=== PATIENT | female | born 1975 | race Caucasian/White ===

== ENCOUNTER 2017-04-02 09:24 | Observation (INO) ==
[2017-04-02] MEDS ORDERED: *HR* Promethazine 25 MG/ML VIAL IVP ONE (09:29)
--- NOTE | 2017-04-02 09:32 | Emergency Department Note ---
Disposition Clinical Impression: Pancreatitis Disposition: Admitted As Inpatient Condition: Good Referrals: Arthur Colon Jr, GYM INSTRUCTOR [Primary Care Provider] - Forms: ED Satisfaction Letter, Work/School Release Time of Disposition: 12:24 Abdominal Pain HPI - General Chief Complaint: ED Abdominal Pain Stated Complaint: Abd Pain Time Seen by Provider: 04/02/17 09:26 Source: patient Limitations: no limitations Nursing Notes Reviewed: Yes Vital Signs Reviewed: Yes - History of Present Illness HPI Narrative: 42-year-old F presents to ER with upper abdominal pain that radiates around to her back. Patient was seen here in the ER last evening for the same complaint. Patient had negative workup. She was given meclizine for her dizziness at that time as well as Zofran. She states that she does not feel any better. She returns for reevaluation. She still having this upper abdominal pain that radiates around to her back. Nothing seems to improve or worsen her symptoms. She denies any significant cough. No chest pain. She has had a recent URI which she was on Zithromax for her. She denies any diarrhea. States her bowels have been moving fine. The lower abdominal pain. She has a previous cholecystectomy. No cardiac history. Her workup last night they did check a troponin and EKG that was unremarkable. - Related Data Home Medications Medication Instructions Recorded Confirmed Acetaminophen [Tylenol] 500 mg PO Q6HR PRN 05/17/15 05/17/15 Albuterol Sulfate [Proair 2 puff IH Q4H PRN 05/17/15 05/17/15 Respiclick] Beclomethasone Diprop 80mcg [Qvar 1 puff IH BID 05/17/15 05/17/15 80 mcg] Dicyclomine [Bentyl] 20 mg PO QID PRN 05/17/15 05/17/15 FLUoxetine HCl [PROzac] 20 mg PO DAILY 05/17/15 05/17/15 Hyoscyamine SL [Levsin SL] 0.125 mg SL DAILY PRN 05/17/15 05/17/15 Lisinopril-HCTZ 10-12.5 [Prinzide 1 each PO DAILY 05/17/15 05/17/15 10-12.5] Loratadine [Claritin] 10 mg PO DAILY 05/17/15 05/17/15 Metoprolol [Lopressor] 12.5 mg PO BID 05/17/15 05/17/15 Omeprazole [PriLOSEC] 40 mg PO QAM 05/17/15 05/17/15 Simvastatin [Zocor] 20 mg PO HS 05/17/15 05/17/15 Previous Rx's Medication Instructions Recorded Dicyclomine [Bentyl] 10 mg PO QID PRN #15 capsule 12/24/15 Oseltamivir [Tamiflu] 75 mg PO BID #10 capsule 07/06/16 Promethazine [Phenergan] 25 mg PO Q8HR PRN #10 tablet 07/06/16 predniSONE [PredniSONE] 20 mg PO DAILY #20 tablet 03/28/17 Ondansetron HCl [Zofran] 4 mg PO Q8H PRN #7 tablet 04/01/17 Allergies Allergy/AdvReac Type Severity Reaction Status Date / Time No Known Allergies Allergy Verified 03/28/17 16:20 Constitutional: Reports: as per HPI. Denies: fever, chills Eyes: Reports: as per HPI Cardiovascular: Reports: as per HPI. Denies: chest pain, palpitations Respiratory: Reports: as per HPI Gastrointestinal: Reports: abdominal pain, nausea. Denies: vomiting Musculoskeletal: Reports: back pain Integumentary: Reports: as per HPI Neurological: Reports: as per HPI Psychiatric: Reports: as per HPI Endocrine: Reports: as per HPI Hematological/Lymphatic: Reports: as per HPI Allergic/Immunologic: Reports: as per HPI Abdominal Pain PMH - Past Medical History Medical history: Reports: arthritis, asthma, other Female Surgical History: Reports: , cholecystectomy [employer] TECHNICIAN history: Reports: non-contributory, bilateral tubal ligation Psychiatric history: Reports: depression - Social History Smoking status: Never smoker Alcohol use: Reports: none Drug use: Reports: none Physical Exam - General Limitations: no limitations - Head Head exam: atraumatic, normocephalic - ENT ENT exam: normal exam - Neck Neck exam: Present: normal inspection - Chest Chest inspection: Present: normal inspection, symmetric chest wall rise - Respiratory Respiratory exam: Present: normal lung sounds bilaterally - Cardiovascular Cardiovascular exam: Present: regular rate, normal rhythm - Abdominal Exam Abdominal exam: Present: soft, tenderness (Patient has tenderness in the epigastric region and along the bilateral lower ribs anteriorly. No guarding or rebound. Normal bowel sounds.) - Extremities Exam Extremities exam: Present: normal inspection - Expanded Lower Extremity Exam Hip/Pelvis exam: Present: normal inspection - Back Exam Back exam: Present: normal inspection - Neurological Exam Neurological exam: Present: alert, oriented X3 - Psychiatric Psychiatric exam: Present: normal affect, normal mood - Skin Skin exam: Present: warm, dry, intact Course Vital Signs Temperature 97.5 F L 04/02/17 09:27 Pulse Rate 55 04/02/17 09:27 Respiratory Rate 16 04/02/17 09:27 Blood Pressure 139/86 04/02/17 09:27 O2 Sat by Pulse Oximetry 98 04/02/17 09:27 Temperature 97.5 F L 04/02/17 09:27 Pulse Rate 55 04/02/17 09:27 Respiratory Rate 16 04/02/17 09:27 Blood Pressure 139/86 04/02/17 09:27 O2 Sat by Pulse Oximetry 98 04/02/17 09:27 Oxygen Delivery Oxygen Delivery Room Air Abdominal Pain - MDM Narrative Medical decision making narrative: Patient was found to have an elevated lipase level today. Yesterday was negative. did a CT scan today which shows evidence of interstitial pancreatitis. Patient will need to be admitted GI rest. Fluids anti-emetics. Discussed the case with the hospitalist. - Medical Records Medical records reviewed: Yes I reviewed the patient's medical records. - Lab Data Lab results reviewed: Yes I reviewed the patient's lab results. Result diagrams: 04/02/17 09:41 04/02/17 09:41 Lab Results 04/02/17 04/02/17 04/02/17 Range/Units 09:41 09:41 09:41 WBC 10.3 (4.3-11.1) K/mcL RBC 4.43 (3.82-4.97) M/mcL Hgb 12.9 (11.5-15.4) g/dL Hct 39.0 (35.3-44.9) % MCV 88.0 (83.0-100.0) fL MCH 29.1 (28.0-33.3) pg MCHC 33.1 (31.6-35.5) g/dL RDW 12.7 (11.5-14.5) % Plt Count 237 (140-400) K/mcL MPV 11.3 (9.4-12.4) fL Immature Gran % 0.9 (0-4) % Seg Neutrophils % 55.6 % Lymphocytes % 33.0 % Monocytes % 8.7 % Eosinophils % 1.4 % Basophils % 0.4 % Neutrophils # 5.7 (1.6-8.9) K/mcL Lymphocytes # 3.4 (0.6-4.6) K/mcL Monocytes # 0.9 (0.0-1.3) K/mcL Eosinophils # 0.1 (0.0-0.6) K/mcL Basophils # 0.0 (0.0-0.2) K/mcL D-Dimer < 215 (0-500) ng/mLFEU Sodium 140 (136-145) mEq/L Potassium 3.4 L (3.5-5.1) mEq/L Chloride 107 (98-107) mEq/L Carbon Dioxide 26 (23-29) mEq/L BUN 16 (6-20) mg/dL Creatinine 0.68 (0.60-1.20) mg/dL Est GFR ( Amer) > 60 (> 60) Est GFR (Non-Af Amer) > 60 (> 60) BUN/Creatinine Ratio 24 (6-26) Glucose 91 (70-105) mg/dL Calculated Osmolality 291 (280-300) Calcium 8.7 (8.6-10.3) mg/dL Total Bilirubin 0.4 (0.3-1.0) mg/dL Direct Bilirubin 0.1 (0.0-0.2) mg/dL Indirect Bilirubin 0.3 (0.0-1.2) mg/dL AST 28 (13-39) Units/L ALT 23 (7-52) Units/L Alkaline Phosphatase 85 (34-104) Units/L Troponin I (< 0.04) ng/mL Serum Total Protein 5.9 L (6.4-8.9) g/dL Albumin 3.8 (3.5-5.7) g/dL Globulin 2.1 L (2.4-3.5) g/dL Albumin/Globulin Ratio 1.8 (1.1-2.2) Lipase 203 H (11-82) Units/L Urine Color (Yellow) Urine Clarity (Clear) Urine pH (5.0-8.0) pH Units Ur Specific [place] (1.010-1.025) Urine Protein (Neg-Trace) mg/dL Urine Glucose (UA) (Normal) mg/dL Urine Ketones (Negative) mg/dL Urine Blood (Negative) Urine Nitrite (Negative) Urine Bilirubin (Negative) Urine Urobilinogen (Normal) mg/dL Ur Leukocyte Esterase (Negative) Urine Microscopic RBC (0-3) per hpf Urine Microscopic WBC (0-3) per hpf Ur Squamous Epith Cells (None-Few) per lpf Urine Bacteria (None-Few) per hpf Hyaline Casts (None-Few) per lpf Ur Culture Indicated? (NO) 04/02/17 04/02/17 Range/Units 09:41 10:07 WBC (4.3-11.1) K/mcL RBC (3.82-4.97) M/mcL Hgb (11.5-15.4) g/dL Hct (35.3-44.9) % MCV (83.0-100.0) fL MCH (28.0-33.3) pg MCHC (31.6-35.5) g/dL RDW (11.5-14.5) % Plt Count (140-400) K/mcL MPV (9.4-12.4) fL Immature Gran % (0-4) % Seg Neutrophils % % Lymphocytes % % Monocytes % % Eosinophils % % Basophils % % Neutrophils # (1.6-8.9) K/mcL Lymphocytes # (0.6-4.6) K/mcL Monocytes # (0.0-1.3) K/mcL Eosinophils # (0.0-0.6) K/mcL Basophils # (0.0-0.2) K/mcL D-Dimer (0-500) ng/mLFEU Sodium (136-145) mEq/L Potassium (3.5-5.1) mEq/L Chloride (98-107) mEq/L Carbon Dioxide (23-29) mEq/L BUN (6-20) mg/dL Creatinine (0.60-1.20) mg/dL Est GFR ( Amer) (> 60) Est GFR (Non-Af Amer) (> 60) BUN/Creatinine Ratio (6-26) Glucose (70-105) mg/dL Calculated Osmolality (280-300) Calcium (8.6-10.3) mg/dL Total Bilirubin (0.3-1.0) mg/dL Direct Bilirubin (0.0-0.2) mg/dL Indirect Bilirubin (0.0-1.2) mg/dL AST (13-39) Units/L ALT (7-52) Units/L Alkaline Phosphatase (34-104) Units/L Troponin I < 0.03 (< 0.04) ng/mL Serum Total Protein (6.4-8.9) g/dL Albumin (3.5-5.7) g/dL Globulin (2.4-3.5) g/dL Albumin/Globulin Ratio (1.1-2.2) Lipase (11-82) Units/L Urine Color Yellow (Yellow) Urine Clarity Cloudy A (Clear) Urine pH 6.0 (5.0-8.0) pH Units Ur Specific [place] 1.022 (1.010-1.025) Urine Protein Negative (Neg-Trace) mg/dL Urine Glucose (UA) Normal (Normal) mg/dL Urine Ketones Negative (Negative) mg/dL Urine Blood Negative (Negative) Urine Nitrite Negative (Negative) Urine Bilirubin Negative (Negative) Urine Urobilinogen Normal (Normal) mg/dL Ur Leukocyte Esterase Negative (Negative) Urine Microscopic RBC 0-3 (0-3) per hpf Urine Microscopic WBC 0-3 (0-3) per hpf Ur Squamous Epith Cells Many H (None-Few) per lpf Urine Bacteria Moderate H (None-Few) per hpf Hyaline Casts None Seen (None-Few) per lpf Ur Culture Indicated? NO (NO) - Radiology Data Radiology results reviewed: Yes I reviewed the patient's radiology results.
[2017-04-02 09:57] LABS: Basophils % 0.4 %; Eosinophils # 0.1 K/mcL (0.0-0.6); Eosinophils % 1.4 %; Hemoglobin 12.9 g/dL (11.5-15.4); Immature Granulocytes % 0.9 % (0-4); Lymphocytes # 3.4 K/mcL (0.6-4.6); Mean Corpuscular HGB Conc 33.1 g/dL (31.6-35.5); Mean Corpuscular Hemoglobin 29.1 pg (28.0-33.3); Mean Platelet Volume 11.3 fL (9.4-12.4); Monocytes # 0.9 K/mcL (0.0-1.3); Monocytes % 8.7 %; Neutrophils # 5.7 K/mcL (1.6-8.9); Platelet Count 237 K/mcL (140-400); Red Blood Count 4.43 M/mcL (3.82-4.97); Red Cell Distribution Width 12.7 % (11.5-14.5); Segmented Neutrophils % 55.6 %
[2017-04-02 10:13] LABS: Alanine Aminotransferase 23 Units/L (7-52); Albumin 3.8 g/dL (3.5-5.7); Albumin/Globulin Ratio 1.8 (1.1-2.2); Alkaline Phosphatase 85 Units/L (34-104); Aspartate Amino Transferase 28 Units/L (13-39); BUN/Creatinine Ratio 24 (6-26); Bilirubin,Direct 0.1 mg/dL (0.0-0.2); Bilirubin,Indirect 0.3 mg/dL (0.0-1.2); Bilirubin,Total 0.4 mg/dL (0.3-1.0); Blood Urea Nitrogen 16 mg/dL (6-20); Calcium 8.7 mg/dL (8.6-10.3); Carbon Dioxide 26 mEq/L (23-29); Chloride 107 mEq/L (98-107); Globulin 2.1 g/dL (2.4-3.5); Glucose 91 mg/dL (70-105); Lipase 203 Units/L (11-82); Osmolality,Calculated 291 (280-300); Potassium 3.4 mEq/L (3.5-5.1); Sodium 140 mEq/L (136-145); Total Protein 5.9 g/dL (6.4-8.9); eGFR For African Americans > 60 (> 60); eGFR For Non-African Americans > 60 (> 60)
[2017-04-02 10:28] LABS: Bilirubin,Urine Negative (Negative); Blood,Urine Negative (Negative); Clarity,Urine Cloudy (Clear); Color,Urine Yellow (Yellow); Glucose,Urine (UA) Normal (Normal); Ketones,Urine Negative (Negative); Leukocyte Esterase,Urine Negative (Negative); Nitrite,Urine Negative (Negative); Protein,Urine Negative (Neg-Trace); Specific Gravity,Urine 1.022 (1.010-1.025); Urobilinogen,Urine Normal (Normal)
[2017-04-02 10:31] LABS: Bacteria,Urine Moderate per hpf (None-Few); Hyaline Casts,Urine None Seen per lpf (None-Few); RBC,Urine 0-3 per hpf (0-3); Squamous Epithelial Cell,Urine Many per lpf (None-Few); WBC,Urine 0-3 per hpf (0-3)
[2017-04-02] MEDS ORDERED: 0.9 % Sodium Chloride 1,000 ML IVC ONE (10:36)
--- NOTE | 2017-04-02 14:23 | Event Note ---
Date of Encounter: 04/02/17 Time of Encounter: 14:17 42/female Morbidly obese, history of asthma/depression, previous history of cholecystectomy. In last 12 hours patient came to the emergency room twice and noted that patient has evaluated lipase. Patient has persistent abdominal pain for which these emergency room visits where scheduled by patient herself. Even though she has a ongoing abdominal pain and she has a assigned primary care provider she preferred to come to the emergency room for urgent/emergent treatment plan. Patient has a epigastric/right upper quadrant pain. Radiating to back, worsening with the food and relieved by rest. Labs: Noted elevated lipase of 203, potassium of 3.4. CT abdomen: Mild stranding surrounding the pancreas, interstitial pancreatitis. Assessment and plan: Pancreatitis ? Etiology. Plan: Admit as inpatient: Patient needs frequent abdominal examination/IV fluids/ close monitoring and may need a specialist evaluation. Nothing by mouth. IV fluids normal saline 100 mL per hour. Bowel rest. Ultrasound of the right upper quadrant. Labs tomorrow morning. Close monitoring. If patient clinically worsens/elevation of the lipase please consider GI/ surgical evaluate
[2017-04-02] MEDS ORDERED: Naloxone 0.4 MG/ML INJ IVP PRN (14:32)
--- NOTE | 2017-04-02 14:48 | Internal Med History&Physical ---
<Vineet Goodson - Last Filed: 04/02/17 15:09> Date of Encounter: 04/02/17 Time of Encounter: 13:30 Assessment and Plan (1) Pancreatitis Current visit: Yes Status: Acute Acute pancreatitis. Pt. states that she has had these same sx before. Was seen in ED yesterday and discharged w/Zofran. Pain became worse this morning in epigastric area w/radiation to back. CT of abdomen/pelvis today shows mild stranding surrounding the pancreas which could represent acute interstitial pancreatitis in the correct clinical setting. Otherwise no acute intra- abdominal abnormality. Will keep pt. NPO except for medications. IV Ringer's lactate 100 mL/HR. Lipase currently 203 on admission. Pt. reports that pain medications make her abdominal pain worse w/spasms, so requests no pain meds. Will consider GI consult if lipase increases and/or pts. sx worsen. Pt. discussed w/Dr. Link who agrees w/plan of care. Pt. is at moderate risk for further morbidity based on current sx, pain, and hx. Observation. Qualifiers: Chronicity: acute Pancreatitis type: unspecified pancreatitis type Acute pancreatitis complication: no infection or necrosis Qualified Code(s): K85.90 - Acute pancreatitis without necrosis or infection, unspecified (2) Nausea Current visit: Yes Status: Acute Acute nausea related to current pancreatitis. IVP Phenergan 12.5 mg Q6 PRN for N /V. Monitor I&O. IVP Protonix 40 mg daily. (3) Dizziness Current visit: Yes Status: Acute Acute dizziness that occurred yesterday and pt. states has now subsided. Given Meclizine in ED yesterday when she was seen. Denies hx of vertigo. Pt. denies need for falls/safety precautions. (4) GERD (gastroesophageal reflux disease) Current visit: Yes Status: Chronic Hx of chronic GERD. IVP Phenergan 12.5 mg Q6 for N/V. IVP Protonix 40 mg daily. Qualifiers: Esophagitis presence: esophagitis presence not specified Qualified Code(s) : K21.9 - Gastro-esophageal reflux disease without esophagitis (5) HTN (hypertension) Current visit: Yes Status: Chronic Hx of chronic HTN. Monitor pt. and VS. Continue pts. Lisinopril HCTZ. Qualifiers: Hypertension type: essential hypertension Qualified Code(s): I10 - Essential (primary) hypertension (6) HLD (hyperlipidemia) Current visit: Yes Status: Chronic Hx of chronic HLD. Lipid panel in a.m. labs. Continue pts. Zocor. Qualifiers: Hyperlipidemia type: pure hypercholesterolemia Qualified Code(s): E78.00 - Pure hypercholesterolemia, unspecified; E78.0 - Pure hypercholesterolemia (7) DVT prophylaxis Current visit: Yes Status: Acute Lovenox 40 mg 0600 for DVT prophylaxis. Monitor pt. for signs of bleeding. Internal Medicine - H&P: HPI Chief complaint: Abdominal pain Admitted From: Emergency Dept Plans for Post Hospital Care: Home History of present illness: Ms. Colmenares is a 42 year old female with medical hx of arthritis, asthma, and GERD presents from the ED with chief complaint of abdominal pain that radiates to her back for the past 2-3 days which became worse at 6 AM this morning with nausea. She reports she has had previous occurrences. Patient was seen yesterday in the same symptoms and was given IV fluids and Meclizine for dizziness and discharged with Zofran. Came back today when pain worsened. Pt. reports pain medications make her abdominal pain worse w/spasms, so she requests no pain medications. She reports an ERCP was done in 2008 and results could not find anything wrong. Patient reports she had cholecystectomy in 1997. Patient denies recent illness, fever, chills, vomiting, headache, changes in vision, chest pain, palpitations, diarrhea, constipation, dizziness, lightheadedness, numbness, tingling, pre-syncope, or syncope. Past Med Surg Social Fam HX - Past Medical History Source: patient, old records reviewed Medical history: arthritis, asthma, GERD, other Psychiatric history: depression - Past Surgical History Surgical History: , cholecystectomy, orthopedic, other, other (Tubal ligation) - Social History Smoking Status: Never smoker Smokeless Tobacco Status: No Alcohol use: none Drug use: none Current living situation: Home, With Family Activity Level: Independent ambulation Recent Out of Country Travel Within the Last 8 Weeks: No Exposure or Possible Exposure to Illness During Travel: No - Family History Father Race: Family Member Ethnicity: Non- Living Status: Still Living Hx Family Cardiac Disorders: Yes (AR, HTN, HLD, DVTs) Mother Race: Family Member Ethnicity: Non- Living Status: Still Living Hx Family Cardiac Disorders: Yes (CAD, HTN, HLD, Leaky valves) Brother Race: Family Member Ethnicity: Non- Living Status: Still Living Hx Family Psychosocial Disorders: Yes (Bipolar, Heroin addict) Sister Race: Family Member Ethnicity: Non- Living Status: Still Living Hx Family Endocrine Disorder: Yes (Grave's disease) Hx Family Psychosocial Disorders: Yes (Heroin addict) Internal Medicine - H&P: Meds Lisinopril-HCTZ 20-12.5 [Prinzide 20-12.5] 1 tab PO DAILY 04/02/17 [History] Simvastatin [Zocor] 20 mg PO HS 04/02/17 [History] 3 Allergy/AdvReac Type Severity Reaction Status Date / Time No Known Allergies Allergy Verified 03/28/17 16:20 All Systems PM: A 10-system review of systems was performed and is negative for pertinent findings except as documented above in the HPI. - Constitutional Constitutional: as per HPI, no chills, no fever(s), no night sweats - EENT Eyes: no change in vision, no discharge, no pain, no photophobia Ears: no ear discharge, no ear pain, no tinnitus Nose, mouth and throat: no dysphagia, no nasal discharge, no neck pain, no sore throat - Breasts Breasts: as per HPI - Respiratory Respiratory: no cough, no dyspnea, no wheezing, no excessive phlegm production - Gastrointestinal Gastrointestinal: as per HPI, abdominal pain, nausea - Genitourinary Genitourinary: no change in urinary stream, no dysuria, no flank pain, no hematuria Menstruation: as per HPI - Musculoskeletal Musculoskeletal ROS IM: no numbness, no tingling - Integumentary Integumentary IM: no rash, no unusual bruising - Neurological Neurological ROS: no confusion, no convulsions, no focal weakness, no numbness, no tingling, no tremor(s) - Psychiatric Psychiatric: as per HPI - Endocrine Endocrine IM: as per HPI - Hematologic/Lymphatic Hematologic/Lymphatic: no easy bruising - Allergic/Immunologic Allergic/Immunologic: as per HPI - Constitutional Vitals: Temp Pulse Resp BP Pulse Ox 97.5 F L 80 16 139/76 98 04/02/17 09:27 04/02/17 12:25 04/02/17 13:04 04/02/17 13:04 04/02/17 12:25 General appearance: Present: cooperative, A&O X 3, morbidly obese, pleasant, no acute distress, answers questions appropriately - Head Head exam: Present: atraumatic, normocephalic - Eye Eye exam: Present: PERRL, conjuntiva pink, sclera anicteric Pupils: Present: PERRL - ENT ENT exam: Present: normal exam, normal external ear exam - Neck Neck exam general surgery: Present: normal inspection, supple, trachea midline. Absent: lymphadenopathy - Respiratory Respiratory exam: Present: CTAB. Absent: accessory muscle use, rales, rhonchi, wheezes - Cardiovascular Cardiovascular exam: Present: RRR, +S1, +S2. Absent: diastolic murmur, gallop, rubs, systolic murmur - GI/Abdominal GI/Abdominal exam: Present: normal bowel sounds, soft, no peritoneal signs. Absent: distended, tenderness - Rectal Rectal exam: Present: deferred - Additional comments: exam deferred. - Extremities Exam Extremities exam: Present: warm, radial pulses palpable and symmetrical. Absent : calf tenderness, cyanotic, pedal edema - Back Exam Back exam: Present: normal inspection - Neurological Exam Neurological exam: Present: CN II-XII intact, oriented X3, no focal deficits. Absent: pronater drift, facial droop, speech deficit - Psychiatric Psychiatric exam: Present: normal affect, normal mood - Skin Skin exam: Present: dry, intact Internal Med - H&P Results - Labs CBC & Chem 7: 04/02/17 09:41 04/02/17 09:41 - Diagnostic Studies CT scan - abdomen Additional comments: Impressions Abdomen/Pelvis CT 04/02/17 11:04 IMPRESSION: Mild stranding surrounding the pancreas which could represent acute interstitial pancreatitis in the correct clinical setting. Otherwise no acute intra-abdominal abnormality. D/ / Larry Preston MD / Larry Preston MD Interpreting Provider: Larry Preston MD <Gavin Link P - Last Filed: 04/02/17 21:18> Date of Encounter: 12/20/17 Internal Medicine - H&P: HPI History of present illness: Ms. Colmenares is a 42 year old female All Systems PM: A 10-system review of systems was performed and is negative for pertinent findings except as documented above in the HPI. - Constitutional Vitals: Temp Pulse Resp BP Pulse Ox 97.7 F 57 14 138/78 96 04/02/17 19:16 04/02/17 19:16 04/02/17 19:16 04/02/17 19:16 04/02/17 19:16 Internal Med - H&P Results - Labs CBC & Chem 7: 04/02/17 09:41 04/02/17 09:41 - Attending Attestation I examined this patient and my medical decision-making was reviewed with the Resident Physician/PEDICURIST. I agree with the documented findings, disposition and treatment plan as described except to the extent set forth below. Please see event note.
[2017-04-02] MEDS: Ringers Solution, Lactated 1,000 ML IVC SCH (15:00)
[2017-04-02] MEDS: Pantoprazole 40 MG VIAL IVP SCH (15:00)
[2017-04-02] MEDS ORDERED: Potassium Chloride 20 MEQ, Lidocaine 1% 2 ML in D5% in Water 250 ML IVPB ONE (15:31)
[2017-04-02] MEDS: *HR* Promethazine 25 MG/ML VIAL IVP PRN (21:49)
[2017-04-03] MEDS: Ringers Solution, Lactated 1,000 ML IVC SCH ×2 (03:13→15:05)
[2017-04-03 04:12] LABS: Basophils % 0.4 %; Eosinophils # 0.2 K/mcL (0.0-0.6); Eosinophils % 2.1 %; Hematocrit 38.2 % (35.3-44.9); Hemoglobin 12.6 g/dL (11.5-15.4); Immature Granulocytes % 0.7 % (0-4); Lymphocytes % 32.1 %; Mean Corpuscular Hemoglobin 29.2 pg (28.0-33.3); Mean Corpuscular Volume 88.4 fL (83.0-100.0); Mean Platelet Volume 11.3 fL (9.4-12.4); Monocytes # 0.7 K/mcL (0.0-1.3); Monocytes % 7.8 %; Neutrophils # 5.2 K/mcL (1.6-8.9); Platelet Count 225 K/mcL (140-400); Red Blood Count 4.32 M/mcL (3.82-4.97); Red Cell Distribution Width 12.7 % (11.5-14.5); Segmented Neutrophils % 56.9 %
[2017-04-03 05:10] LABS: Alanine Aminotransferase 17 Units/L (7-52); Albumin 3.3 g/dL (3.5-5.7); Albumin/Globulin Ratio 1.6 (1.1-2.2); Alkaline Phosphatase 75 Units/L (34-104); Aspartate Amino Transferase 13 Units/L (13-39); BUN/Creatinine Ratio 15 (6-26); Bilirubin,Total 0.6 mg/dL (0.3-1.0); Blood Urea Nitrogen 9 mg/dL (6-20); Calcium 8.3 mg/dL (8.6-10.3); Carbon Dioxide 27 mEq/L (23-29); Chloride 106 mEq/L (98-107); Chol/HDL Ratio 5.3 (0-4.9); Cholesterol 164 mg/dL (< 200); Globulin 2.1 g/dL (2.4-3.5); Glucose 89 mg/dL (70-105); HDL Cholesterol 31 mg/dL (40-59); LDL Cholesterol,Calculated 91 mg/dL (0-99); Magnesium 1.9 mg/dL (1.6-2.6); Osmolality,Calculated 294 (280-300); Potassium 3.6 mEq/L (3.5-5.1); Sodium 143 mEq/L (136-145); Total Protein 5.4 g/dL (6.4-8.9); Triglycerides 209 mg/dL (< 150); eGFR For African Americans > 60 (> 60); eGFR For Non-African Americans > 60 (> 60)
[2017-04-03 05:41] LABS: Hemoglobin A1C 4.9 %
[2017-04-03] MEDS: *HR* Enoxaparin 40 MG/0.4 ML SYRINGE SQ SCH (06:18)
[2017-04-03] MEDS: Pantoprazole 40 MG VIAL IVP SCH (09:09)
[2017-04-03] MEDS: Lisinopril-HCTZ 20-12.5mg TABLET PO SCH (09:09)
[2017-04-03] MEDS: *HR* Promethazine 25 MG/ML VIAL IVP PRN ×2 (09:30→18:19)
--- NOTE | 2017-04-03 11:52 | Internal Med Progress Note ---
Date of Encounter: 04/03/17 Time of Encounter: 11:45 - Assessment and plan (1) Acute pancreatitis Current Visit: Yes Status: Acute Assessment and plan: The patient has had multiple admissions in the past for acute pancreatitis. Etiology of this is unclear. She has had her gallbladder taken out. She has no drinking history. She had her triglycerides is not significantly elevated. She is on medications that could cause pancreatitis however any medication could cause it and I do not think she would benefit from stopping any of these meds as it is not clear which one would cause it.. She is not really on the typical ones that would cause it. I did advise the patient that she probably would benefit from outpatient follow-up with GI. For now we will continue with IV fluids. I will give her clear liquid diet today. She seems to be doing much better. I spent that she possibly could be discharged tomorrow. Continue with pain control. Qualifiers: Pancreatitis type: unspecified pancreatitis type Acute pancreatitis complication: unspecified Qualified Code(s): K85.90 - Acute pancreatitis without necrosis or infection, unspecified (2) HTN (hypertension) Current Visit: Yes Status: Chronic Assessment and plan: Blood pressure stable. Continue with lisinopril and hydrochlorothiazide. Qualifiers: Hypertension type: essential hypertension Qualified Code(s): I10 - Essential (primary) hypertension (3) HLD (hyperlipidemia) Current Visit: Yes Status: Chronic Assessment and plan: Continue with simvastatin. Qualifiers: Hyperlipidemia type: pure hypercholesterolemia Qualified Code(s): E78.00 - Pure hypercholesterolemia, unspecified; E78.0 - Pure hypercholesterolemia (4) DVT prophylaxis Current Visit: Yes Status: Acute Assessment and plan: Lovenox - Subjective Interval history: No acute events. The patient says that her pain is much better improved. She continues on IV fluids. She has been nothing by mouth. She says this is about her fourth time that she has been hospitalized for pancreatitis. There has not been clear etiology to this. She had a cholecystectomy in the past. She says she also feels that she goes into pancreatitis at home but she manages on her own with clear liquids and advancing diet as tolerated. She has been afebrile. - Constitutional Vitals: Temp Pulse Resp BP Pulse Ox 97.7 F 63 12 126/85 96 04/03/17 10:55 04/03/17 10:55 04/03/17 10:55 04/03/17 10:55 04/03/17 10:55 General appearance: Present: cooperative, A&O X 3, morbidly obese, pleasant, no acute distress, answers questions appropriately Exam: GEN: NAD CVS: RRR. S1, S2, No m/r/g RESP: CTAB ABD: Soft, NT, ND, +BS EXT: No edema. 2+ DP. No rashes NEURO: Nonfocal Internal Medicine: Result - Labs CBC & Chem 7: 04/03/17 03:14 04/03/17 03:14 Labs: Short CBC 04/03/17 Range/Units 03:14 WBC 9.2 (4.3-11.1) K/mcL Hgb 12.6 (11.5-15.4) g/dL Hct 38.2 (35.3-44.9) % Plt Count 225 (140-400) K/mcL Neutrophils # 5.2 (1.6-8.9) K/mcL BMP 04/03/17 03:14 Sodium 143 Potassium 3.6 Chloride 106 Carbon Dioxide 27 BUN 9 Creatinine 0.59 L Glucose 89 Calcium 8.3 L Liver Function 04/03/17 Range/Units 03:14 Total Bilirubin 0.6 (0.3-1.0) mg/dL AST 13 (13-39) Units/L ALT 17 (7-52) Units/L Alkaline Phosphatase 75 (34-104) Units/L Albumin 3.3 L (3.5-5.7) g/dL - ABG Interpretation ABG results: PT/INR, D-dimer D-Dimer < 215 ng/mLFEU (0-500) 04/02/17 09:41 Consult Discharge Plan - Plan Referrals: Arthur Colon Jr, [employer] ST[employer] MANAGER [Primary Care Provider] -
[2017-04-04] MEDS: Ringers Solution, Lactated 1,000 ML IVC SCH (01:20)
[2017-04-04 04:54] LABS: Alanine Aminotransferase 17 Units/L (7-52); Albumin 3.4 g/dL (3.5-5.7); Albumin/Globulin Ratio 1.6 (1.1-2.2); Alkaline Phosphatase 74 Units/L (34-104); Aspartate Amino Transferase 11 Units/L (13-39); BUN/Creatinine Ratio 11 (6-26); Bilirubin,Total 0.8 mg/dL (0.3-1.0); Blood Urea Nitrogen 6 mg/dL (6-20); Calcium 8.6 mg/dL (8.6-10.3); Carbon Dioxide 26 mEq/L (23-29); Chloride 104 mEq/L (98-107); Globulin 2.1 g/dL (2.4-3.5); Glucose 100 mg/dL (70-105); Osmolality,Calculated 280 (280-300); Potassium 3.6 mEq/L (3.5-5.1); Sodium 136 mEq/L (136-145); Total Protein 5.5 g/dL (6.4-8.9); eGFR For African Americans > 60 (> 60); eGFR For Non-African Americans > 60 (> 60)
[2017-04-04 05:05] LABS: Basophils % 0.3 %; Eosinophils # 0.2 K/mcL (0.0-0.6); Eosinophils % 1.9 %; Hematocrit 38.9 % (35.3-44.9); Hemoglobin 12.9 g/dL (11.5-15.4); Immature Granulocytes % 0.4 % (0-4); Lymphocytes # 2.7 K/mcL (0.6-4.6); Mean Corpuscular HGB Conc 33.2 g/dL (31.6-35.5); Mean Corpuscular Hemoglobin 29.2 pg (28.0-33.3); Mean Platelet Volume 11.1 fL (9.4-12.4); Monocytes # 0.9 K/mcL (0.0-1.3); Monocytes % 7.8 %; Neutrophils # 7.7 K/mcL (1.6-8.9); Platelet Count 236 K/mcL (140-400); Red Blood Count 4.42 M/mcL (3.82-4.97); Red Cell Distribution Width 12.6 % (11.5-14.5); Segmented Neutrophils % 66.6 %
[2017-04-04] MEDS ORDERED: *HR* Enoxaparin 40 MG/0.4 ML SYRINGE SQ SCH (06:00)
[2017-04-04] MEDS: *HR* Enoxaparin 40 MG/0.4 ML SYRINGE SQ SCH (06:02)
[2017-04-04 07:30] VITALS: BP 108/72
[2017-04-04] MEDS: Pantoprazole 40 MG VIAL IVP SCH (07:55)
[2017-04-04] MEDS: Lisinopril-HCTZ 20-12.5mg TABLET PO SCH (07:55)
--- NOTE | 2017-04-04 10:54 | Discharge Summary ---
Date of Encounter: 04/04/17 Time of Encounter: 10:50 - Discharge Diagnosis (1) Acute pancreatitis Priority: Primary Status: Acute Qualifiers: Pancreatitis type: unspecified pancreatitis type Acute pancreatitis complication: unspecified Qualified Code(s): K85.90 - Acute pancreatitis without necrosis or infection, unspecified (2) HTN (hypertension) Priority: Secondary Status: Chronic Qualifiers: Hypertension type: essential hypertension Qualified Code(s): I10 - Essential (primary) hypertension (3) HLD (hyperlipidemia) Priority: Secondary Status: Chronic Qualifiers: Hyperlipidemia type: pure hypercholesterolemia Qualified Code(s): E78.00 - Pure hypercholesterolemia, unspecified; E78.0 - Pure hypercholesterolemia - Discharge Medications Home Medications: Lisinopril-HCTZ 20-12.5 [Prinzide 20-12.5] 1 tab PO DAILY 04/02/17 [History] Simvastatin [Zocor] 20 mg PO HS 04/02/17 [History] Allergies/Adverse Reactions: 3 Allergy/AdvReac Type Severity Reaction Status Date / Time No Known Allergies Allergy Verified 03/28/17 16:20 Date of admission: 04/02/17 12:50 Primary care physician: Arthur Colon Jr, [employer] [employer] Consults: 04/02/17 13:57 Consult to Invasive Line Access Team [CONS] Routine Reason for Consult: limited vascular access Line Type: EPIV - Patient Status Disposition: Home, Self-Care Condition: Fair Overall status at discharge: patient is progressing back to baseline - Discharge Instructions Follow Up With: Caitlin Ramsay [Advanced Practice Nurse] - 04/11/17 8:00 am - Diet and Activity Activity: resume usual activities as tolerated Diet: advance to your usual diet Hospital course: Ms. Colmenares is a 42 year old female medical hx of arthritis, asthma, and GERD presents from the ED with chief complaint of abdominal pain that radiates to her back for the past 2-3 days which became worse the day of admission. She had nausea. She underwent CT abdomen and pelvis which showed mild stranding surrounding the pancreas which could present acute interstitial pancreatitis. She had a mildly elevated lipase at 203. Of note this is not the first episode of pancreatitis patient has had. She was hospitalized 4 times in the past with no clear etiology. She had a cholecystectomy in 1997. We admitted the patient to the hospitalist service with IV fluids and pain control. We advanced her diet until she was able to tolerate full liquid diet. She says she usually manages acute attacks of pancreatitis at home and due to the multiple recurrence of them she knows how to manage acute dermatitis now at home. I did advise the patient that she be referred to GI as an outpatient. I did also discuss with her the possibility of this being medication induced. She is on simvastatin and lisinopril and hydrochlorothiazide. I cannot exactly for sure point that one medication to cause this however it is probably worth it by her PCP to try switching some of these meds to other agents if possible. He was stable for discharge on 04/04/2017. - Time Spent with Patient Total time spent providing and/or coordinating discharge services: Greater than 30 minutes - Constitutional Vitals: Temp Pulse Resp BP Pulse Ox 97.9 F 59 16 108/72 95 04/04/17 06:28 04/04/17 06:28 04/04/17 06:28 04/04/17 06:28 04/04/17 06:28 General appearance: Present: cooperative, A&O X 3, morbidly obese, pleasant, no acute distress, answers questions appropriately Exam: GEN: NAD CVS: RRR. S1, S2, No m/r/g RESP: CTAB ABD: Soft, NT, ND, +BS EXT: No edema. 2+ DP. No rashes NEURO: Nonfocal
== END 2017-04-04 12:50 | disposition home or self-care (01) ==
LOC: EMEROO 09:24 → 3ANU 09:24
PROVIDERS: ADMIT Internal Medicine; ATTEND Family Medicine